=== PATIENT | female | born 1965 | race Caucasian/White ===

== ENCOUNTER 2016-09-13 07:12 | Day surgery (SDC) | payer MEDICAID ==
[~2016-09-13] VITALS: Ht 165.1 cm; Wt 62.6 kg
[2016-09-13] MEDS ORDERED: SIMETHICONE 40 MG/0.6 ML ML ONE (07:37)
[2016-09-13] MEDS ORDERED: MIDAZOLAM HCL 5 MG/5 ML VIAL ONE (07:52)
[2016-09-13] MEDS ORDERED: fentaNYL CITRATE/PF 100 MCG/2 ML AMP ONE (07:53)
[2016-09-13] MEDS: fentaNYL CITRATE/PF 100 MCG/2 ML AMP IVP ONE ×2 (09:43→09:47)
[2016-09-13] MEDS: MIDAZOLAM HCL 5 MG/5 ML VIAL IVP ONE ×3 (09:45→09:57)
[2016-09-13 13:42] VITALS: BP_SYST 114
[2016-09-13] MEDS ORDERED: VANCOMYCIN HCL 1000 MG/VIAL IV ONE (22:54)
== END 2016-09-13 11:20 | disposition home or self-care (01) ==
LOC: SDS 07:12
PROVIDERS: ATTEND Internal Medicine
DX: Z12.11 Encounter for screening for malignant neoplasm of colon (principal); K57.30 Diverticulosis of large intestine without perforation or abscess without bleeding; K64.8 Other hemorrhoids; J45.909 Unspecified asthma, uncomplicated; Z85.850 Personal history of malignant neoplasm of thyroid
CPT/HCPCS: 45378; J2250; J3010; J3370; J7030